=== PATIENT | male | born 1945 | race Caucasian/White ===

== ENCOUNTER 2018-03-03 07:44 | Day surgery (SDC) | payer OTHER ==
--- NOTE | 2018-03-03 09:56 | CP.SDSHP ---
Same Day Surgery H & P - History Proposed Procedure: COLONSCOPY Pre-Op Diagnosis: SEE NOTES - Previous Medical/Surgical History Cardiac: Hypertension Endocrine/Metabolic: Diabetes, Other Misc: Other Pain: 2.Mild Pain - Allergies Allergies: Allergies No Known Allergies Allergy (Verified 03/03/18 08:54) - Physical Exam General Appearance: N Vital Signs: Vital Signs 03/03/18 08:55 Temperature 97.8 F Pulse Rate 91 H Respiratory 18 Rate Blood Pressure 133/65 O2 Sat by Pulse 98 Oximetry Mental Status: Alert & Oriented x3 Neuro: WNL Heart: Other Lungs: WNL GI: WNL - {Optional Preform as Required} Breast: WNL Abdomen: Other Rectal: Other Integument: WNL : WNL Ortho: Other ENT: WNL - Impression Pt. Evaluated Today:Candidate for Anesthesia & Procedure: Yes - Date & Time Time: 09:56 Short Stay Discharge - Short Stay Discharge Admitting Diagnosis/Reason for Visit: ENCOUNTER FOR SCREENING FOR MALIGNANT NEOPLASM OF Disposition: HOME/ ROUTINE Referrals: Loree Olivas MD [Primary Care Provider] -
[2018-03-03] MEDS ORDERED: Propofol 10 mg/ml Inj (20 ML) ONE (10:05)
[2018-03-03] MEDS ORDERED: Belladonna-Phenobarbital PO ONE (10:45)
[2018-03-03 13:27] VITALS: TEMP 97; O2SAT 100
[2018-03-03 13:36] VITALS: BP 143/75; PULSE 78; RESP 20
== END 2018-03-03 15:00 | disposition home or self-care (01) ==
LOC: C.ENDO 07:44
PROVIDERS: ATTEND Specialist
DX: Z12.11 Encounter for screening for malignant neoplasm of colon (principal); K56.41 Fecal impaction; E11.9 Type 2 diabetes mellitus without complications; I10 Essential (primary) hypertension
CPT/HCPCS: 45378; 82948; J2001; J2704

== ENCOUNTER 2018-06-04 08:11 | Day surgery (SDC) | payer MEDICARE, OTHER ==
[2018-06-04 08:55] VITALS: BMI 28.4
[2018-06-04] MEDS ORDERED: Lactated Ringer's 500 ML IV SCH (10:45)
[2018-06-04] MEDS ORDERED: Lactated Ringer's 1,000 ML IV ONE (10:47)
[2018-06-04] MEDS ORDERED: Propofol 10 mg/ml Inj (20 ML) ONE (10:49)
--- NOTE | 2018-06-04 10:49 | CP.SDSHP ---
Same Day Surgery H & P - History Proposed Procedure: colonscopy Pre-Op Diagnosis: SEE NOTES - Previous Medical/Surgical History Cardiac: Hypertension, ASHD/CAD Endocrine/Metabolic: Diabetes, Other - Allergies Allergies: Allergies No Known Allergies Allergy (Verified 03/03/18 08:54) - Physical Exam Vital Signs: Vital Signs 06/04/18 09:00 Temperature 97 F L Pulse Rate 80 Respiratory 17 Rate Blood Pressure 133/67 O2 Sat by Pulse 99 Oximetry Mental Status: Alert & Oriented x3 Neuro: WNL Heart: Other Lungs: WNL GI: Other - {Optional Preform as Required} Breast: WNL Abdomen: Other Rectal: Other Integument: WNL : WNL Ortho: Other ENT: WNL - Impression Pt. Evaluated Today:Candidate for Anesthesia & Procedure: Yes - Date & Time Time: 10:48 Short Stay Discharge - Short Stay Discharge Admitting Diagnosis/Reason for Visit: SCREENING Disposition: HOME/ ROUTINE Referrals: Loree Olivas MD [Primary Care Provider] -
[2018-06-04] MEDS ORDERED: Belladonna-Phenobarbital PO ONE (11:50)
[2018-06-04 12:17] VITALS: RESP 19; O2SAT 99
[2018-06-04 13:34] VITALS: BP 128/69; PULSE 85; TEMP 98.5
== END 2018-06-04 13:25 | disposition home or self-care (01) ==
LOC: C.ENDO 08:11
PROVIDERS: ATTEND Specialist
DX: K63.5 Polyp of colon (principal); Z12.11 Encounter for screening for malignant neoplasm of colon; K64.8 Other hemorrhoids; K55.20 Angiodysplasia of colon without hemorrhage
CPT/HCPCS: 45378; J2704; J7120